=== PATIENT | male | born 2000 | race Caucasian/White ===

== ENCOUNTER 2024-08-30 21:30 | Emergency (ER) | payer SELFPAY ==
[2024-08-30 21:51] LABS: Bilirubin Neg (Negative); Blood, Urine Negative (Negative); Glucose, Urine (Dipstick) Normal (Negative); Ketone, Urine Negative (Negative); Leukocyte 25 (Negative); Nitrite Negative (Negative); Protein, Urine (Dipstick) 15 mg/dl (Neg-Trace); Specific Gravity, Urine 1.025 (1.005-1.030); Urobilinogen Normal mg/dL (Less than 2)
[2024-08-30 22:02] LABS: Clarity Hazy (Clear)
[2024-08-30 22:13] LABS: CAUTI Indications for Culture Pelvic or flank pain
[2024-08-30 22:14] LABS: Bacteria/HPF 2+ HPF (None Seen); Squamous Epithelial 0-3 HPF (0-3)
[2024-08-30 22:15] LABS: Mucous/LPF 2+ LPF (<2+)
[2024-08-30 22:17] LABS: Urine Culture Reflex Yes Yes
[2024-08-31] MEDS ORDERED: Sterile Water 10 ML ONE (01:38)
[2024-08-31] MEDS ORDERED: cefTRIAXone (ROCEPHIN) 500 MG VIAL ONE (01:39)
[2024-08-31] MEDS ORDERED: Ibuprofen 200 MG TAB ONE (01:39)
[2024-08-31] MEDS ORDERED: Doxycycline 100 MG CAP PO SCH (02:00)
== END 2024-08-31 02:12 | disposition home or self-care (01) ==
LOC: CSHERS 21:30
DX: N45.1 Epididymitis (principal); I86.1 Scrotal varices
CPT/HCPCS: 76870; 81001; 87086; 93976; 96372; J0696